=== PATIENT | female | born 1960 | race Caucasian/White ===

== ENCOUNTER 2016-10-19 12:56 | Emergency (ER) | payer BC ==
[2016-10-19 13:16] VITALS: BP 111/74
--- NOTE | 2016-10-19 14:30 | UC ---
Truncal Trauma HPI - HPI Summary HPI Summary: Pt reports that she was hiking last week and slipped and fell on side of rock from standing position while wearing back pack - History Of Current Complaint Chief Complaint: UCGeneralIllness Stated Complaint: RIB PAIN Time Seen by Provider: 10/19/16 13:54 Hx Obtained From: Patient ?: No Onset/Duration: Sudden Onset, Lasting Days - 7 Onset Of Pain: Immediate Severity Initially: Mild Severity Currently: Moderate Mechanism Of Injury: Fall From A Standing Position Aggravating Factor(s): Movement, Deep Breathing, Cough Alleviating factor(s): Rest, Shallow Breathing - Allergies/Home Medications Allergies/Adverse Reactions: Allergies Allergy/AdvReac Type Severity Reaction Status Date / Time No Known Allergies Allergy Verified 10/19/16 13:11 PMH/Surg Hx/FS Hx/Imm Hx Previously Healthy: Yes - Surgical History Surgical History: Yes Surgery Procedure, Year, and Place: [id number]. TUBAL LIGATION- ESSURE- 2004. [id number]. vein stripping 2014 - Family History Known Family History: Positive: Other - positive [facility] for contusion - Social History Lives: With Family Alcohol Use: Rare Substance Use Type: None Smoking Status (MU): Never Smoked Tobacco - Immunization History Most Recent Influenza Vaccination: no Review of Systems Constitutional: Negative Skin: Negative Eyes: Negative ENT: Negative Respiratory: Negative Cardiovascular: Negative Gastrointestinal: Negative Genitourinary: Negative Motor: Decreased ROM - right upper chest/ribs Neurovascular: Negative Musculoskeletal: Arthralgia, Myalgia - right upper chest Neurological: Negative Psychological: Negative All Other Systems Reviewed And Are Negative: Yes Physical Exam Triage Information Reviewed: Yes Appearance: Pain Distress Vital Signs: Initial Vital Signs Temp 99.3 F 10/19/16 13:11 Pulse 74 10/19/16 13:11 Resp 16 10/19/16 13:11 BP 111/74 10/19/16 13:11 Pulse Ox 100 10/19/16 13:11 Vital Signs Reviewed: Yes Eye Exam: Normal ENT Exam: Normal Neck exam: Normal Respiratory Exam: Normal Cardiovascular Exam: Normal Musculoskeletal Exam: Other Musculoskeletal: Positive: ROM Limited @ - right upper chest Neurological Exam: Normal Psychological Exam: Normal Skin Exam: Normal Truncal Trauma Course/Dx - Differential Dx/Diagnosis Differential Diagnosis/HQI/PQRI: Chest Wall Contusion, Rib Fracture Provider Diagnoses: right rib fracture. 3 views of the right ribs are reviewed. There is fracture of the right fourth rib. This is. displaced approximately 1 shafts width. No pneumothorax is noted. The remainder of the. ribs are unremarkable. IMPRESSION: There is fracture of the right fourth rib. Discharge - Discharge Plan Condition: Stable Disposition: HOME Prescriptions: traMADol TAB* [Ultram*] 50 mg PO Q6HR PRN #12 tab MDD 4 PRN Reason: Pain Patient Education Materials: Rib Contusion (ED) Referrals: Jennifer Weeks [Primary Care Provider] - If Needed
--- NOTE | 2016-10-19 15:42 | RAD ---
Indication: Right rib injury. 3 views of the right ribs are reviewed. There is fracture of the right fourth rib. This is displaced approximately 1 shafts width. No pneumothorax is noted. The remainder of the ribs are unremarkable. IMPRESSION: There is fracture of the right fourth rib.
== END 2016-10-19 15:21 | disposition home or self-care (01) ==
LOC: UCCORT 12:56
DX: S22.31XA Fracture of one rib, right side, initial encounter for closed fracture (principal); W01.198A Fall on same level from slipping, tripping and stumbling with subsequent striking against other object, initial encounter; Y93.01 Activity, walking, marching and hiking; Y92.9 Unspecified place or not applicable
CPT/HCPCS: 99212; G0463

== ENCOUNTER 2018-06-10 10:53 | Emergency (ER) | payer BC ==
[2018-06-10 11:17] VITALS: BP 100/60
--- NOTE | 2018-06-10 12:03 | UC ---
Truncal Trauma HPI - HPI Summary HPI Summary: Pt c/o right side rib and chest pain after "falling on to inner tube" 2 days ago. - History Of Current Complaint Chief Complaint: UCBackPain Stated Complaint: S/P FALL-RIB PAIN Time Seen by Provider: 06/10/18 11:20 Hx Obtained From: Patient ?: No Onset/Duration: Sudden Onset, Lasting Days, Still Present Onset Of Pain: Post Accident Severity Initially: Moderate Severity Currently: Moderate Pain Intensity: 8 Mechanism Of Injury: Fall From A Standing Position Aggravating Factor(s): Movement, Deep Breathing, Cough Alleviating factor(s): Rest Associated Signs And Symptoms: Positive: Negative - Allergies/Home Medications Allergies/Adverse Reactions: Allergies Allergy/AdvReac Type Severity Reaction Status Date / Time No Known Allergies Allergy Verified 06/10/18 11:17 Home Medications: Home Medications NK [No Home Medications Reported] 06/10/18 [History Confirmed 06/10/18] PMH/Surg Hx/FS Hx/Imm Hx Previously Healthy: Yes - Surgical History Surgical History: Yes Surgery Procedure, Year, and Place: [id number]. TUBAL LIGATION- ESSURE- 2004. [id number]. vein stripping 2014. LEFT BREAST BIOPSY 2011 - Family History Known Family History: Positive: Cardiac Disease, Other - positive [facility] for contusion - Social History Occupation: Employed Full-time Lives: With Family Alcohol Use: Rare Substance Use Type: None Smoking Status (MU): Never Smoked Tobacco Have You Smoked in the Last Year: No - Immunization History Most Recent Influenza Vaccination: no Review of Systems All Other Systems Reviewed And Are Negative: Yes Constitutional: Positive: Negative Skin: Positive: Negative Eyes: Positive: Negative ENT: Positive: Negative Respiratory: Positive: Other - c/o pain with deep breaths Cardiovascular: Positive: Chest Pain - trunk pain Gastrointestinal: Positive: Negative Genitourinary: Positive: Negative Motor: Positive: Decreased ROM - right side of chest Neurovascular: Positive: Negative Musculoskeletal: Positive: Arthralgia, Decreased ROM, Myalgia Neurological: Positive: Negative Psychological: Positive: Negative Is Patient Immunocompromised?: No Physical Exam Triage Information Reviewed: Yes Appearance: Pain Distress Vital Signs: Initial Vital Signs Temp 97.2 F 06/10/18 11:14 Pulse 62 06/10/18 11:14 Resp 18 06/10/18 11:14 BP 100/60 06/10/18 11:14 Pulse Ox 96 06/10/18 11:14 Vital Signs Reviewed: Yes Eye Exam: Normal ENT Exam: Normal Dental Exam: Normal Neck exam: Normal Respiratory Exam: Normal Respiratory: Positive: Normal breath sounds, Other: - no crepitus appreciated Cardiovascular Exam: Normal Abdominal Exam: Normal Musculoskeletal: Positive: ROM Limited @ - right side of chest Neurological Exam: Normal Psychological Exam: Normal Skin Exam: Normal Diagnostics - Radiology No standard instances Radiology Interpretation Completed By: Radiologist - IMPRESSION: #. No acute RIGHT rib fracture or other acute traumatic injury evident. Truncal Trauma Course/Dx - Differential Dx/Diagnosis Differential Diagnosis/HQI/PQRI: Liver Trauma, Rib Fracture Provider Diagnosis: Contusion of rib on right side Discharge - Sign-Out/Discharge Documenting (check all that apply): Patient Departure All imaging exams completed and their final reports reviewed: Yes - Discharge Plan Condition: Stable Disposition: HOME Patient Education Materials: Rib Contusion (ED) Referrals: Jennifer Weeks [Primary Care Provider] - If Needed - Billing Disposition and Condition Condition: STABLE Disposition: Home
== END 2018-06-10 12:14 | disposition home or self-care (01) ==
LOC: UCCORT 10:53
DX: S20.211A Contusion of right front wall of thorax, initial encounter (principal); W19.XXXA Unspecified fall, initial encounter; Y92.9 Unspecified place or not applicable
CPT/HCPCS: 99211; G0463

== ENCOUNTER 2018-06-28 09:20 | Emergency (ER) | payer BC ==
[2018-06-28 10:18] VITALS: BP 110/58
--- NOTE | 2018-06-28 17:55 | ED ---
Influenza-Like Illness - HPI Summary HPI Summary: 58 year old female with no PMH no recent ABX use presnts with cough, does not look at what it produces but blelieves productive. H/O laryngitis last week, resolved, however now with constant cough. multipel coughing fits, no fever, chill however + fatigue symtpoms worse at night. Patient travelling to [place] Friday. - History of Current Complaint Chief Complaint: UCRespiratory Time Seen by Provider: 06/28/18 10:31 Hx Obtained From: Patient Onset/Duration: Sudden Onset, Lasting Days, Still Present Severity: Moderate Associated Signs & Symptoms: Cough, Sore Throat - Allergy/Home Medications Allergies/Adverse Reactions: Allergies Allergy/AdvReac Type Severity Reaction Status Date / Time No Known Allergies Allergy Verified 06/28/18 10:11 Home Medications: Home Medications Ibuprofen TAB* [Advil TAB*] 200 mg PO Q6H PRN 06/28/18 [History Confirmed ] Photosensitivity Medication BID 06/28/18 [History] PMH/Surg Hx/FS Hx/Imm Hx Previously Healthy: Yes Endocrine/Hematology History: Denies: Hx Diabetes Cardiovascular History: Denies: Hx Hypertension, Hx Pacemaker/ICD Respiratory History: Denies: Hx Asthma History: Denies: Hx Renal Disease Sensory History: Denies: Hx Contacts or Glasses, Hx Hearing Aid Opthamlomology History: Denies: Hx Contacts or Glasses Psychiatric History: Denies: Hx Panic Disorder - Surgical History Surgery Procedure, Year, and Place: [id number]. TUBAL LIGATION- ESSURE- 2004. [id number]. vein stripping 2014. LEFT BREAST BIOPSY 2011 Hx Anesthesia Reactions: No Infectious Disease History: No Infectious Disease History: Reports: Traveled Outside the [place] in Last 30 Days - Family History Known Family History: Positive: Cardiac Disease, Other - positive [facility] for contusion - Social History Alcohol Use: Rare Substance Use Type: Reports: None Smoking Status (MU): Never Smoked Tobacco Have You Smoked in the Last Year: No Review of Systems Positive: Chills, Fatigue Positive: Sore Throat, Ear Ache, Nasal Discharge Positive: Cough All Other Systems Reviewed And Are Negative: Yes Physical Exam Triage Information Reviewed: Yes Vital Signs On Initial Exam: Initial Vitals Temp Pulse Resp BP Pulse Ox 97.9 F 57 16 110/58 100 06/28/18 10:12 06/28/18 10:12 06/28/18 10:12 06/28/18 10:12 06/28/18 10:12 Vital Signs Reviewed: Yes Appearance: Positive: Well-Appearing, No Pain Distress, Well-Nourished Skin: Positive: Warm Eyes: Positive: Normal ENT: Positive: Pharynx normal, Nasal congestion, TMs normal. Negative: Tonsillar swelling, Tonsillar exudate Neck: Positive: Supple, Nontender, No Lymphadenopathy Respiratory/Lung Sounds: Positive: Clear to Auscultation, Breath Sounds Present , Decreased Breath Sounds Cardiovascular: Positive: Normal, RRR Psychiatric: Positive: Normal Diagnostics - Vital Signs Vital Signs Temp Pulse Resp BP Pulse Ox 06/28/18 10:12 97.9 F 57 16 110/58 100 - Laboratory Lab Statement: Any lab studies that have been ordered have been reviewed, and results considered in the medical decision making process. Flu Symptom Course/Dx - Diagnoses Differential Diagnosis/HQI/PQRI: Positive: Bronchitis Provider Diagnoses: Acute bronchitis Discharge - Sign-Out/Discharge Documenting (check all that apply): Patient Departure All imaging exams completed and their final reports reviewed: No Studies - Discharge Plan Condition: Good Disposition: HOME Prescriptions: Albuterol HFA INHALER* [Ventolin HFA Inhaler*] 1 - 2 puff INH Q4H PRN #1 mdi PRN Reason: cough, wheezing predniSONE [Prednisone 20 MG TAB] 20 mg PO SEE INSTRUCTIONS #4 tablet Patient Education Materials: Acute Bronchitis (ED) Referrals: Jennifer Weeks [Primary Care Provider] - Additional Instructions: - Increase fluid intake - Follow up with primary physician within 5-7 days for re-evaluation - Steroids as directed - Tylenol/ Motrin as needed for pain - Over the counter medication as needed for symptoms - Go to ER with shortness of breath, chest pain, increased pain, fever > 102. - Albuterol inhaler as needed every 4-6 hours for cough - Billing Disposition and Condition Condition: GOOD Disposition: Home
== END 2018-06-28 11:26 | disposition home or self-care (01) ==
LOC: UCCORT 09:20
DX: J20.9 Acute bronchitis, unspecified (principal); H92.09 Otalgia, unspecified ear
CPT/HCPCS: 71046; 99212; G0463